=== PATIENT | female | born 1960 | race Caucasian/White ===

== ENCOUNTER → 2017-03-30 | Outpatient (CLI) | payer MEDICARE, OTHER ==
[~2017-03-30] MED LIST: ACCOLATE20 MG PO; ALBUTEROL MININEB NEB; ALBUTEROL17 GM INH; ALL DAY ALLERGY10 M3 PO; ALPRAZOLAM PO; BELSOMRA20 MG PO; DALIRESP500 MCG PO; DILTIAZEM ER90 MG PO; EFFEXOR PO; FENOFIBRATE160 MG PO; FLEXERIL10 MG PO; HYDROCODON-ACE1 EAC4 PO; HYDROCODON-ACE1 EAC5 PO; KLONOPIN1 M1 PO; LASIX PO; LEVAQUIN PO; LORTAB 10-5001 EACH PO; LORTAB 101 TAB 10/5 PO; MICRO-K PO; MOBIC15 MG PO; MONTELUKAST SOD10 MG PO; NEXIUM PO; PANTOPRAZOLE SO40 MG PO; PERCOCET10 PO; PHENERGAN; PHENERGAN12.5 MG PO; PREDNISONE PO; PROAIR HFA8.5 GM IH; RISPERDAL1 M1 PO; SERTRALINE HCL50 MG PO; SINGULAIR PO; SOMA; SOMA PO; SPIRIVA18 MCG INH; SYMBICORT INH; TRIAMTERENE-HC1 EACH PO; TRIAMTERENE/HCT1 TA3 PO; VICODIN PO; WELLBUTRIN PO; XANAX0.5 MG PO; XANAX1 MG PO; ZYRTEC PO
--- NOTE | ~2017-03-30 | EKG ---
PATIENT: SADIE CARTER UNIT #: [id number] Ventricular Rate: 98 BPM Atrial Rate: 98 BPM P-R Interval: 136 ms QRS Duration: 78 ms Q-T Interval: 334 ms QTC Calculation(Bezet): 426 ms P [place]: 62 degrees Calculated R [place]: 10 degrees Calculated T [place]: 24 degrees Diagnosis Line: Normal sinus rhythm Diagnosis Line: Non Diagnostic Q in Lead Inferior leads Borderline Diagnosis Line: ECG Diagnosis Line: When compared with ECG of 28-MAY-2012 14:28, Diagnosis Line: Borderline criteria for Inferior infarct are now Diagnosis Line: Present Diagnosis Line: T wave amplitude has decreased in Anterior leads Diagnosis Line: Confirmed by ROD MOON MD ([id number]) on 03/30/2017 Diagnosis Line: 8:12:04 PM INTERPRETING MD: RED BLAKELY
[2017-03-30 14:16] LABS: BUN/CREATININE RATIO 21.53; CALCIUM SERUM 9.7 mg/dL (8.4-10.2); CREATININE SERUM 1.3 mg/dL (0.6-1.4); GLOM FILT RATE Estimated 45.2 mL/min (>60); POTASSIUM 4.2 mmol/L (3.5-5.1)
== END | disposition home or self-care (01) ==
LOC: CAMB 12:24
PROVIDERS: Surgery
DX: Z01.818 Encounter for other preprocedural examination (principal); K43.9 Ventral hernia without obstruction or gangrene
CPT/HCPCS: 36415; 80048; 93005

== ENCOUNTER 2017-04-06 09:58 | Observation (INO) | payer MEDICARE, OTHER ==
--- NOTE | ~2017-04-06 | DS ---
Unit #: [id number] #: [id number] Patient: SADIE CARTER [id number] [address] [place], [place] [address] [id number] MR#: [id number] NAME: SADIE CARTER ROOM: 471 Age: 56 Sex: F Admission Date: 04/06/2017 : 1960 Discharge Date: 04/08/2017 Attending Physician: Sushant Terrell Jr., M.D. Primary Care Physician: Julio Deras D.O. DISCHARGE SUMMARY CONSULTATIONS None. PROCEDURE PERFORMED On 04/06, she underwent laparoscopic repair of incarcerated ventral hernia. ADMITTING DIAGNOSIS Incarcerated ventral hernia. DISCHARGE DIAGNOSIS Incarcerated ventral hernia. SECONDARY DIAGNOSIS Chronic pain. BRIEF HOSPITAL COURSE This is a 56-year-old lady who was admitted with incarcerated chronic ventral hernia. This is also recurrent. She underwent laparoscopic repair and postoperatively had issues with pain aggravated by her history of chronic pain. She was kept an additional day for pain management. DISPOSITION Discharged to home. FOLLOW-UP She is to follow up with Dr. Terrell in 7-10 days to have her yisel removed. MEDICATIONS She was given a given a script for pain medicine, and obviously this must be cleared through her pain management doctor. DISCHARGE INSTRUCTIONS 1. She has been instructed it is okay to shower. 2. No driving until cleared by Dr. Terrell. ACTIVITY As tolerated. Dictated by... Renzo Cummings III, M.D. Unit #: [id number] #: [id number] Patient: SADIE CARTER VANESSA/cee TD: 04/09/2017 08:06 JOB #: [id number] DISCHARGE SUMMARY Page 1 of 1 X Renzo Cummings III, MD X DISCHARGE SUMMARY
--- NOTE | ~2017-04-06 | OR ---
Unit #: [id number] #: [id number] Patient: SADIE CARTER [id number] [address] [place], [place] [address] [id number] MR#: [id number] NAME: SADIE CARTER ROOM: 471 Date of Procedure: 04/06/2017 Admission Date: 04/06/2017 Surgeon: Sushant Terrell Jr., M.D. : 1960 Attending Physician: Sushant Terrell Jr., M.D. Primary Care Physician: Julio Deras D.O. OPERATIVE REPORT INDICATIONS FOR PROCEDURE The patient is a 56-year-old white female, who recently presented to the office complaining of a bulge and discomfort in the upper midline of her abdomen. She has had previous upper abdominal surgery and on examination was noted to have an incarcerated upper midline ventral incisional hernia. This was somewhat tender and it was felt that this should be repaired. She was brought in this time for repair of this at her request. She understands the procedure including the risks, including that of recurrence, infection, bleeding, intra-abdominal organ injury, and consents. PREOPERATIVE DIAGNOSIS Moderate-size upper midline ventral incisional hernia with incarceration. POSTOPERATIVE DIAGNOSES Moderate-size upper midline ventral incisional hernia with incarceration, noting two defects along with a small umbilical defect. These were all incarcerated. ANESTHESIA General with endotracheal intubation and 0.5% Marcaine with epinephrine locally at the port sites. [employer] Jillian Young. PROCEDURE PERFORMED Laparoscopic reduction and repair of multiple ventral hernias with an an 8 x 10 inch Ventralight mesh. DESCRIPTION OF PROCEDURE The patient was positioned in supine position. After being anesthetized and intubated, was prepped and draped in routine fashion for repair of her ventral incisional hernia. A 5-mm Optiview was introduced in the right lateral abdominal wall area followed by the camera. Intra-abdominal exploration was carried out. There was no evidence of any injury related to introduction of the Optiview. The patient was noted to have an incarcerated upper midline ventral incisional hernia with a small umbilical hernia defect. There were multiple adhesions. These were taken down with blunt dissection. The hernia was reduced with blunt dissection using the nonlocking clamp on the omental tissue within it. After it was reduced, there were 2 holes obvious, one approximately 4 cm in diameter, Unit #: [id number] #: [id number] Patient: SADIE CARTER the other two [id number]. There was also umbilical hernia as noted above with a small amount incarcerated fat within it, which was removed. The falciform was then taken down with the hook cautery using a current of 30 and after it was brushed away from the area, an 8 x 10 inch Ventralight mesh was tacked in 4 corners, placed intraabdominal after being soaked and brought up against the anterior abdominal wall with excellent coverage of both the umbilical defect as well as the upper midline defects. This was tacked in place with absorbable tacks and the sutures holding it up, which had been used initially with the needle, were then lysed. There was excellent coverage of all the defects with extra good security of the graft against the anterior abdominal wall. After total hemostasis was noted, the ports that have initially been placed, two on the left and two on the right, were removed and the fascia in the larger port site before removal was closed with the neoClose technique. This was in the left lower quadrant of the abdomen. The port sites were then injected with 0.5% Marcaine with epinephrine and after they were irrigated and hemostasis achieved with Bovie cautery, the skin edges were approximated with stainless-steel skin clips and skin stapling device. Sterile dressings were applied externally. Estimated blood loss less than 100 mL. The patient received less than 2000 mL of crystalloid solution during the procedure. Sponges and instruments counts were correct x3. No drains used. No complications. The patient was taken to the recovery room with stable vital signs in satisfactory condition. Dictated by... Sushant Terrell Jr., M.D. JMB/michael TD: 04/07/2017 01:59 JOB #: [id number] OPERATIVE REPORT Page 1 of 1 X Sushant Terrell MD X PROCEDURE OPERATIVE NOTE
[~2017-04-06 09:58] MED LIST changes: -PERCOCET10 PO
[2017-04-07 03:29] LABS: HEMATOCRIT 33.5 % (35.0-45.0); HEMOGLOBIN 10.8 gm/dL (12.0-16.0); MEAN CELL VOLUME 92.8 FL (83-96); MEAN CORPUSCULAR HEMOGLOBIN 29.9 PG (28-34); MEAN CORPUSCULAR HGB CONC 32.2 g/dL (30-36); MEAN PLATELET VOLUME 8.1 FL (6.5-11.5); RED BLOOD COUNT 3.61 X10e (3.90-5.30); RED CELL DISTRIBUTION WIDTH 13.6 % (11.0-15.5); WHITE BLOOD COUNT 9.9 X10e3 (4.0-10.5)
[2017-04-08] MEDS ORDERED: PERCOCET10 PO (10:35)
[2017-04-08] MEDS ORDERED: HYDROCODON-ACE1 EAC5 PO (10:54)
== END 2017-04-08 12:15 | disposition home or self-care (01) ==
LOC: CSUR 09:58 → CEDOF 13:00 → CSUR 17:02 → CEDOF 17:02 → C4C 17:02 → CEDOF 17:05 → C4C 04-08 12:15
PROVIDERS: Surgery
DX: K43.0 Incisional hernia with obstruction, without gangrene (principal); G89.29 Other chronic pain; I10 Essential (primary) hypertension; E78.00 Pure hypercholesterolemia, unspecified; J44.9 Chronic obstructive pulmonary disease, unspecified; K21.9 Gastro-esophageal reflux disease without esophagitis; M19.90 Unspecified osteoarthritis, unspecified site; Z87.891 Personal history of nicotine dependence; E66.9 Obesity, unspecified; J30.9 Allergic rhinitis, unspecified; Z83.3 Family history of diabetes mellitus; Z82.49 Family history of ischemic heart disease and other diseases of the circulatory system; Z82.5 Family history of asthma and other chronic lower respiratory diseases
CPT/HCPCS: 85027; 94640; 94760; 94761; 96374; 96376; C1713; C1787; G0378; J0131; J0330; J0690; J1100; J1170; J1650; J1885; J2250; J2270; J2405; J2710; J3010

== ENCOUNTER → 2017-08-07 | Outpatient (CLI) | payer MEDICARE, OTHER ==
[~2017-08-07] MED LIST changes: +PERCOCET10 PO
[2017-08-07 13:06] LABS: INR 2.5; PROTHROMBIN TIME (PATIENT) 27.4 SECONDS (10.0-11.7)
== END | disposition home or self-care (01) ==
LOC: CLAB 12:27
PROVIDERS: Orthopaedic Surgery
DX: Z51.81 Encounter for therapeutic drug level monitoring (principal); Z96.652 Presence of left artificial knee joint; Z79.01 Long term (current) use of anticoagulants
CPT/HCPCS: 36415; 85610

== ENCOUNTER → 2017-08-09 | Outpatient (CLI) | payer MEDICARE, OTHER ==
[2017-08-09 11:43] LABS: INR 2.6; PROTHROMBIN TIME (PATIENT) 28.8 SECONDS (10.0-11.7)
== END | disposition home or self-care (01) ==
LOC: CLAB 10:55
PROVIDERS: Orthopaedic Surgery
DX: Z51.81 Encounter for therapeutic drug level monitoring (principal); Z96.652 Presence of left artificial knee joint; Z79.01 Long term (current) use of anticoagulants
CPT/HCPCS: 36415; 85610